=== PATIENT | female | born 1985 | race Caucasian/White ===

== ENCOUNTER 2022-05-15 11:54 | Outpatient (CLI) | payer BC, SELFPAY ==
--- NOTE | 2022-05-15 12:26 | US_ITS ---
WS: [id number] EARLY OBSTETRICAL ULTRASOUND (<14 WEEKS). HISTORY: ENCOUNTER FOR SUPERVISION OF NORMAL COMPARISON: None available. Single intrauterine gestational sac is identified. Cardiac activity at 160 BPM. [place]-rump length zurdo sures 5.5 cm which corresponds to a gestation of 12w1d. Normal-appearing yolk sac and amnion demonstr ated. No subchorionic hemorrhage. No free fluid. LEFT adnexal cystic mass measures 6.1 x 7.4 x 4.3 cm. Very little adjacent ovarian tissue is identifi ed. There is normal vascularity in the visualized ovarian tissue. Normal size RIGHT ovary measuring 3 .0 x 2.7 x 1.8 cm. Normal vascularity within the RIGHT ovary. US/US OB <= 14 weeks fetus [id number] IMPRESSION: 1. Single intrauterine gestation of 12 weeks 1 day with an EDC of 11/26/2022. 2. Normal cardiac activity. 3. Large LEFT adnexal cyst measuring 6.1 x 7.4 x 4.3 cm. Due to the large size patient is at increased risk for ovarian torsion.
== END 2022-05-15 11:55 | disposition home or self-care (01) ==
LOC: RAD 11:56
DX: Z34.91 Encounter for supervision of normal pregnancy, unspecified, first trimester (principal); Z3A.12 12 weeks gestation of pregnancy
CPT/HCPCS: 76801

== ENCOUNTER 2022-09-03 12:38 | Outpatient (CLI) | payer MEDICAID, SELFPAY ==
[2022-09-03] VITALS (8 sets, daily range): BP systolic 108–124; BP diastolic 56–79; PULSE 86–102; RESP 16; TEMP 36.4; BMI 36.1
[2022-09-03 14:08] LABS: Add Urine Culture? No; Bacteria Urine TRACE /hpf; Bilirubin Urine Neg (Negative); Blood Urine Neg (Negative); Glucose Urine UA Norm (Normal); Ketones Urine Negative (Negative); Leukocyte Esterase Urine Negative (Negative); Nitrate Urine Negative (Negative); Protein Urine Neg (Negative); RBC Urine 0-4 /hpf (0-2); Specific Gravity, Urine 1.005 (1.005-1.030); Squamous Epithelial Cell Urine 0-4 /hpf (0-5); Urine Appearance Clear (CLEAR); Urine Color Yellow (Yellow); Urobilinogen Urine Norm (Negative); WBC Urine 0-4 /hpf (0-5); pH Urine 6.5 (5-7)
[2022-09-03 14:12] LABS: Actim Prom Negative
== END 2022-09-03 14:30 | disposition home or self-care (01) ==
LOC: OPOB 12:38 → OBGYN 12:39
PROVIDERS: Visit Provider Family Medicine
DX: O26.899 Other specified pregnancy related conditions, unspecified trimester (principal); Z3A.00 Weeks of gestation of pregnancy not specified; N89.8 Other specified noninflammatory disorders of vagina
CPT/HCPCS: 59025; 81001; 84112; 99211

== ENCOUNTER 2022-10-05 16:04 | Emergency (ER) | payer MEDICAID, SELFPAY ==
--- NOTE | 2022-10-05 16:09 | XRR_ITS ---
PROCEDURE INFORMATION: Exam: XR Chest Exam date and time: 10/05/2022 4:17 PM Age: 37 years old Clinical indication: Cough; Additional info: Dyspnea/cough TECHNIQUE: Imaging protocol: Radiologic exam of the chest. Views: 1 view. COMPARISON: No relevant prior studies available. FINDINGS: Lungs: Unremarkable. No consolidation. Pleural spaces: Unremarkable. No pleural effusion. No pneumothorax. Heart/Mediastinum: Unremarkable. No cardiomegaly. Bones/joints: Unremarkable. XR/XR chest 1V portable [id number] IMPRESSION: No acute findings.
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
[2022-10-05 16:10] VITALS: BP 123/77; PULSE 100; RESP 18; O2SAT 98; BMI 36.6
[2022-10-05 16:18] VITALS: BP 123/77; PULSE 86; O2SAT 98
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
--- NOTE | 2022-10-05 16:44 | PC.NURSE ---
PT PLACED ON CONTINUOUS NIBP, SP2, AND CM
[2022-10-05 16:48] VITALS: BP 99/63; PULSE 77; RESP 24; O2SAT 99
[2022-10-05 16:57] LABS: Add Urine Microscopic? NO; Charge for UA Resulting for Rev
[2022-10-05 16:59] LABS: Urine Appearance Clear (CLEAR); Urine Color Colorless (Yellow)
[2022-10-05 17:00] LABS: Bilirubin Urine Neg (Negative); Blood Urine Neg (Negative); Glucose Urine UA Norm (Normal); Ketones Urine 1+ (Negative); Leukocyte Esterase Urine Negative (Negative); Nitrate Urine Negative (Negative); Protein Urine Neg (Negative); Specific Gravity, Urine 1.005 (1.005-1.030); Urobilinogen Urine Norm (Negative); pH Urine 7 (5-7)
[2022-10-05 17:23] LABS: Basophils % 0.2 %; Eosinophils # 0.1 10^3/uL (0.0-0.8); Hematocrit 38.7 % (37.0-47.0); Hemoglobin 13.1 g/dL (11.5-15.3); Lymphocytes % 11.9 %; Mean Corpuscular HGB Conc 33.9 g/dL (30.0-36.0); Mean Corpuscular Hemoglobin 32.7 pg (28.0-34.0); Mean Corpuscular Volume 96.5 fl (81-99); Monocytes # 0.5 10^3/uL (0.2-0.9); Monocytes % 5.8 %; Neutrophils # 6.98 10^3/uL (1.8-7.7); Neutrophils % 80.9 %; Nucleated Red Blood Cells % 0 %; Platelet Count 219 10^3/cmm (130-400); Red Blood Count 4.01 10^6/uL (4.1-5.3); Red Cell Distribution Width 11.9 % (12.1-15.1); White Blood Count 8.6 10^3/uL (4.0-10.0)
[2022-10-05 17:33] VITALS: BP 124/76; PULSE 92; RESP 18; O2SAT 99
[2022-10-05 17:40] LABS: Alanine Aminotransferase 16 U/L (0-33); Albumin Level 3.4 g/dL (3.5-5.2); Alkaline Phosphatase 72 U/L (35-105); Anion Gap 13.6 (5-19); Aspartate Amino Transferase 16 U/L (0-32); Blood Urea Nitrogen 5 mg/dL (6-20); Calcium 8.8 mg/dL (8.5-10.5); Carbon Dioxide 22 mmol/L (22-29); Chloride 104 mmol/L (98-107); Globulin 2.6 g/dL (1.3-4.6); Glomerular Filtration Rate 93.6 mL/min (90-130); Glucose 84 mg/dL (65-115); Osmolality Calculated 278 mOsm/kg (285-295); Potassium 3.6 mmol/L (3.5-5.1); Sodium 136 mmol/L (136-145); Total Bilirubin 0.3 mg/dL (0.15-1.2)
== END 2022-10-05 18:00 | disposition home or self-care (01) ==
PROVIDERS: Emergency Provider Family Medicine
DX: O9A.213 Injury, poisoning and certain other consequences of external causes complicating pregnancy, third trimester (principal); T14.8XXA Other injury of unspecified body region, initial encounter; Z3A.32 32 weeks gestation of pregnancy; V89.2XXA Person injured in unspecified motor-vehicle accident, traffic, initial encounter
CPT/HCPCS: 36415; 71045; 72040; 80053; 81003; 85025; 99283

== ENCOUNTER 2022-10-05 18:05 | Outpatient (CLI) | payer MEDICAID, SELFPAY ==
[2022-10-05] VITALS (12 sets, daily range): BP systolic 108–123; BP diastolic 58–76; PULSE 78–106; RESP 16; TEMP 36.6; BMI 36.6
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
[2022-10-06 00:02] VITALS: BP 103/55; PULSE 80
[2022-10-06] MEDS: calcium carbonate 500 mg Chew Tablet 1000 MG PO (02:17)
[2022-10-06 02:27] VITALS: BP 100/65; PULSE 86
[2022-10-06 06:18] VITALS: BP 112/58; PULSE 83
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
[2022-10-06 07:25] VITALS: BP 98/55; PULSE 82
[2022-10-06 09:30] VITALS: BP 117/66; PULSE 93
[2022-10-06 09:50] VITALS: BP 117/66; PULSE 93; RESP 18
== END 2022-10-06 09:35 | disposition home or self-care (01) ==
LOC: OPOB 18:06 → OBGYN 23:05
PROVIDERS: Visit Provider Family Medicine
DX: O47.00 False labor before 37 completed weeks of gestation, unspecified trimester (principal); Z3A.32 32 weeks gestation of pregnancy; V89.2XXA Person injured in unspecified motor-vehicle accident, traffic, initial encounter
CPT/HCPCS: 59025; 76819; 99211